=== PATIENT | male | born 1980 | race Caucasian/White ===

== ENCOUNTER 2019-07-29 15:38 | Observation (INO) ==
--- NOTE | 2019-07-29 18:00 | Event Note ---
Date of Encounter: 07/29/19 Time of Encounter: 17:30 Patient with history of nephrolithiasis was sent over from the [place] after he presented there yesterday with complaints of severe right-sided flank pain along with nausea and vomiting. Patient had similar symptoms in May when he was diagnosed with kidney stone. At that time he was referred to urologist for follow-up but he has not been able to make it to see one year. He denies any fevers or chills. No dysuria or hematuria. On exam, he has tenderness in his right CVA region. Heart sounds are normal. Breath sounds are normal. CT scan of the abdomen and pelvis shows a 8mm right ureteral stone with hydroureter. Treat symptomatically with IV fluids and IV hydration. Continue Rocephin. Check CBC and BMP in the morning. Urology consulted. Keep nothing by mouth after midnight.
[2019-07-29] MEDS ORDERED: Acetaminophen 325 MG TABLET PO PRN (18:13)
[2019-07-29] MEDS ORDERED: Naloxone 0.4 MG/ML INJ IVP PRN (18:13)
[2019-07-29] MEDS ORDERED: *HR* OxyCODONE Immed Rel 5 MG TABLET PO PRN (18:13)
--- NOTE | 2019-07-29 18:13 | Urology - Consult Note ---
Date of Encounter: 07/30/19 Time of Encounter: 18:10 - Assessment and Plan (1) Ureteral stone Current Visit: Yes Status: Acute Assessment and plan: 38-year-old man with concern for a right ureteral stone. We will check a KUB today. He will have clear liquids past midnight stopping at noon tomorrow. He would like to have his stone treated. Recommend proceeding with a right ureteroscopy, laser lithotripsy, and stent placement. He was informed of the risks of the procedure including but not limited to bleeding, infection, injury to other structures, need for further procedures, stent irritation, incomplete fragmentation, ureteral perforation, need for nephrostomy tube, need for open repair, risks unforeseen, and the risk of anesthesia. He is willing to proceed. He understands that he likely has large volume stone in both kidneys. We will not be able to treat all the stones tomorrow. We will essentially treat the obstructing stone at this point. We would have to stage the treatment of his other stones at a later date. Urology CN:HPI Consult date: 07/29/19 Reason for consult Urology: Other (Right flank pain) Requesting physician: Victorino Jane History of present illness: 38 year old man presents with a long standing history of right flank pain. His pain became more severe and he went to the [facility]. He had a CT scan which showed concern for multiple renal calculi with an obstructing right ureteral stone. He was transferred to [place] for further care. He reports that he is known these had kidney stones for about 2 months. He was scheduled to visit with an outside urologist, but was not able to make that appointment. The pain is in his right flank and radiates to the right groin. It is sharp. He has had nausea and has not tolerated food well. He denies any previous history of stone surgery. Past Med Surg Social Fam HX - Past Medical History Medical history: thyroid disease Additional medical history: As from internal medicine H&P. - Past Surgical History Surgical History: thyroidectomy - Social History Smoking Status: Never smoker Additional social history: Works as a mental health counselor. He is a . - Family History Mother Hx Family Cancer: Yes (breast) Medications and Allergies Allergy/AdvReac Type Severity Reaction Status Date / Time dexamethasone [From Decadron] Allergy Palpitation Verified 07/29/19 17:25 s Diclofenac Allergy Palpitation Verified 07/29/19 18:17 s Review of Systems - Constitutional no chills, no fever(s) - EENT Nose, mouth and throat: no dizziness - Cardiovascular no chest pain - Respiratory no dyspnea - Gastrointestinal nausea, no vomiting - Genitourinary flank pain, no hematuria - Musculoskeletal no back pain - Integumentary no erythema, no rash - Neurological no weakness - Psychiatric no suicidal ideation - Hematologic/Lymphatic no easy bleeding - Allergic/Immunologic no wheezing Exam - General physical appearance Present: well developed, well nourished, no distress - Eyes Absent: icteric - ENT Present: normal nares - Neck Present: trachea midline - Respiratory Present: normal respiratory effort - Cardiovascular Cardiovascular exam IM: RRR - Abdomen Abdomen: Present: soft - Integumentary Present: no rash - Neurologic Present: normal coordination - Musculoskeletal Present: other (grossly normal) Urology Results - Labs 07/29/19 18:50 All other labs normal. - Imaging CT scan - abdomen: report reviewed CT scan - pelvis: report reviewed Consult Discharge Plan - Plan Referrals: [facility] [Outside] Amarjit Mohr MD [Partnered Physician] -
--- NOTE | 2019-07-29 18:30 | Internal Med History&Physical ---
<Paty Cantrell I - Last Filed: 07/29/19 18:25> Date of Encounter: 07/29/19 Time of Encounter: 06:10 Internal Medicine - H&P: HPI History of present illness: Mr. Max is a 38 year old male obese with a long standing history of right flank pain. The pain is in his right flank and radiates to the right groin. It is sharp. He has had nausea and has not tolerated food well. patient denies vomiting He denies any fevers or chills. No dysuria or hematuria. . no change in bowel habit , NO chest pain or SOB His pain became more severe and he went to the [facility]. He had a CT scan which showed concern for multiple renal calculi with an obstructing right ureteral stone. He was transferred to [place] for further care.He reports that he is known these had kidney stones for about 2 months. He was scheduled to visit with an outside urologist, but was not able to make that appointment.He denies any previous history of stone surgery. Patient is stable now . Urology consulted plan for right ureteroscopy, laser lithotripsy, and stent placement. Past Med Surg Social Fam HX - Past Medical History Medical history: thyroid disease Additional medical history: vit. D def, adjustment disorder with mixed anxiety and depression Psychiatric history: anxiety, depression - Past Surgical History Surgical History: thyroidectomy Additional surgical history: knee scope - Social History Smoking Status: Never smoker Alcohol use: none Drug use: none - Family History Mother Hx Family Cancer: Yes (breast) Internal Medicine - H&P: Meds Allergy/AdvReac Type Severity Reaction Status Date / Time dexamethasone [From Decadron] Allergy Palpitation Verified 07/29/19 17:25 s Diclofenac Allergy Palpitation Verified 07/29/19 18:17 s All Systems PM: A 10-system review of systems was performed and is negative for pertinent findings except as documented above in the HPI. - Constitutional Exam: General: no acute distress , A&AX3 HEENT: Atraumatic, Normocephaly, sclera unicteric Neck: supple , Full ROM , trachea midline Cardiac: RRR , S1+. S2+ Lungs: Normal Breath Sounds Bilaterally, No Wheeze, Rales, Rhonchi Abdomen: Soft, , Right costovertebral angle tenderness, righ flank tenderness no organomegaly , +bowel sounds Extremities: No Clubbing, No Cyanosis,or edema , Normal Pulses Skin : intact , Normal color , bruises on his arms Psychiatric : normal affect, normal mood Nuero : alert, normal gait, oriented X3 - Assessment and Plan (1) Ureteral stone Current Visit: Yes Status: Acute Assessment and plan: -Patient presented right flank and radiates to the right groin - CT scan which showed concern for multiple renal calculi with an obstructing right ureteral stone - KUB today -IVF -antiemitic -pain control medication -clear liquids past midnight stopping at noon tomorrow -urology consulted Plan for right ureteroscopy, laser lithotripsy, and stent placement. - Time Spent With Patient Total time spent is greater than 50% in coordination of care (as documented) at patient's floor/unit and/or counseling patient: <Victorino Jane - Last Filed: 07/29/19 21:15> Date of Encounter: 07/29/19 Time of Encounter: 17:30 Internal Medicine - H&P: HPI History of present illness: Mr. Max is a 38 year old male All Systems PM: A 10-system review of systems was performed and is negative for pertinent findings except as documented above in the HPI. - Constitutional Vitals: Temp Pulse Resp BP Pulse Ox 98.5 F 69 16 145/80 95 07/29/19 20:32 07/29/19 20:32 07/29/19 20:32 07/29/19 20:32 07/29/19 20:32 Internal Med - H&P Results - Labs CBC & Chem 7: 07/29/19 18:50 Labs: Short CBC 07/29/19 Range/Units 18:50 WBC 12.0 H (4.3-11.1) K/mcL Hgb 12.8 L (12.9-16.9) g/dL Hct 37.2 L (37.5-50.1) % Plt Count 240 (140-400) K/mcL Neutrophils # 10.1 H (1.6-8.9) K/mcL - Time Spent With Patient Total time spent is greater than 50% in coordination of care (as documented) at patient's floor/unit and/or counseling patient: - Attending Attestation I saw evaluated and examined this patient and reviewed past medical, family, social histories and objective data including labs and my medical decision- making was reviewed with the Resident Physician, Paty Cantrell. I agree with the documented findings, disposition and treatment plan as described except to any changes set forth below. We independently had [id number] contact with the patient. Patient with history of nephrolithiasis was sent over from the [place] after he presented there yesterday with complaints of severe right-sided flank pain along with nausea and vomiting. Patient had similar symptoms in May when he was diagnosed with kidney stone. At that time he was referred to urologist for follow-up but he has not been able to make it to see one year. He denies any fevers or chills. No dysuria or hematuria. On exam, he has tenderness in his right CVA region. Heart sounds are normal. Breath sounds are normal. CT scan of the abdomen and pelvis shows a 8mm right ureteral stone with hydroureter. Treat symptomatically with IV fluids and IV hydration. Continue Rocephin. Check CBC and BMP in the morning. Urology consulted. Keep nothing by mouth after midnight.
[2019-07-29] MEDS: Ondansetron 4 MG/2 ML VIAL IVP PRN (18:42)
[2019-07-29] MEDS: *HR* OxyCODONE Immed Rel 5 MG TABLET PO PRN (18:42)
[2019-07-29] MEDS: 0.9 % Sodium Chloride 1,000 ML IVC SCH (18:42)
[2019-07-29] MEDS: cefTRIAXone 1,000 MG in Water for inj. (sterile) 10 ML IVP SCH (18:56)
[2019-07-29 19:05] LABS: Basophils % 0.2 %; Eosinophils % 0.1 %; Hematocrit 37.2 % (37.5-50.1); Hemoglobin 12.8 g/dL (12.9-16.9); Immature Granulocytes % 0.6 % (0-4); Lymphocytes # 1.1 K/mcL (0.6-4.6); Lymphocytes % 8.9 %; Mean Corpuscular HGB Conc 34.4 g/dL (31.6-35.5); Mean Corpuscular Hemoglobin 30.8 pg (28.0-33.3); Mean Corpuscular Volume 89.6 fL (83.0-100.0); Mean Platelet Volume 9.9 fL (9.4-12.4); Monocytes # 0.7 K/mcL (0.0-1.3); Monocytes % 5.8 %; Neutrophils # 10.1 K/mcL (1.6-8.9); Platelet Count 240 K/mcL (140-400); Red Blood Count 4.15 M/mcL (4.19-5.50); Red Cell Distribution Width 12.4 % (11.5-14.5); Segmented Neutrophils % 84.4 %
--- NOTE | 2019-07-29 19:13 | Anesthesia Evaluation PreOp ---
Date of Encounter: 07/29/19 Time of Encounter: 18:00 - Past History Planned Operation: Right USE/Stent Cardiac History: Denies any Significant Hx Pulmonary History: VINCENT Dx (not on CPAP) CIVIL ENGINEER History: Denies Any Significant HX Other Medical History: Thyroid, Other (Morbid Obesity Anxiety Depression) Alcohol Use: none Drug use: none Medications and Allergies Allergy/AdvReac Type Severity Reaction Status Date / Time dexamethasone [From Decadron] Allergy Palpitation Verified 07/29/19 17:25 s Diclofenac Allergy Palpitation Verified 07/29/19 18:17 s - Meds/Allergy Pre-op Review Medications Reviewed: Yes Allergies Reviewed: Yes Beta Blockers on Current Med List: No Anesthesia Results - Labs 07/29/19 18:50 Anesthesia Exam O2 Sat Height 1.83 m Weight 147.27 kg Height: 6'0 Weight: 324 lbs NPO (# of Hours): [place] Pain Scale: 0 - HEENT Pupil (Motor): Pupils equal, EOMI Mallampati: II Teeth: Normal Oral Opening: Greater than 3 - CIVIL ENGINEER LOC: Oriented CIVIL ENGINEER Motor: Normal RUE, Normal LUE, Normal RLE, Normal LLE, Normal Face CIVIL ENGINEER Sensory: Normal: RUE, LUE, RLE, LLE, Face - Cardiac Rhythm: Regular Murmur: None JVD: No Carotid Bruit: No - Pulmonary Breath Sounds: bilateral Clear Respiratory Effort: Symmetrical Anesthesia Assess/Plan ASA Score: 3 ([place] VINCENT Hypothyroid) Level of consciousness: Cooperative, Oriented Anesthetic Plan: General Autologous Blood: No Monitoring Plan: Standard Monitors Recovery Plan: PACU (Discussed [place], agrees to proceed)
[2019-07-29] MEDS: traMADol 50 MG TABLET PO PRN (21:07)
[2019-07-29 21:40] LABS: Bilirubin,Urine Negative (Negative); Blood,Urine Negative (Negative); Clarity,Urine Clear (Clear); Color,Urine Yellow (Yellow); Glucose,Urine (UA) Normal (Normal); Ketones,Urine Negative (Negative); Leukocyte Esterase,Urine Negative (Negative); Nitrite,Urine Negative (Negative); Protein,Urine Negative (Neg-Trace); Specific Gravity,Urine 1.027 (1.010-1.025); Urobilinogen,Urine Normal (Normal)
[2019-07-30] MEDS: *HR* OxyCODONE Immed Rel 5 MG TABLET PO PRN ×3 (00:27→15:23)
[2019-07-30] MEDS: 0.9 % Sodium Chloride 1,000 ML IVC SCH (03:25)
[2019-07-30] MEDS: Ondansetron 4 MG/2 ML VIAL IVP PRN (07:31)
--- NOTE | 2019-07-30 07:52 | Internal Med Progress Note ---
<Victorino Jane - Last Filed: 07/30/19 13:50> Hospitalist Progress Note - Encounter Date of Encounter: 07/30/19 Time of Encounter: 09:15 - Exam Vitals: Temp Pulse Resp BP Pulse Ox 98.2 F 65 16 145/87 93 07/30/19 11:46 07/30/19 11:46 07/30/19 11:46 07/30/19 11:46 07/30/19 11:46 - Time Spent with Patient Total time spent is greater than 50% in coordination of care (as documented) at patient's floor/unit and/or counseling patient: Internal Medicine: Result - Labs CBC & Chem 7: 07/30/19 07:05 07/30/19 07:05 Labs: Short CBC 07/29/19 07/30/19 Range/Units 18:50 07:05 WBC 12.0 H 8.5 (4.3-11.1) K/mcL Hgb 12.8 L 12.2 L (12.9-16.9) g/dL Hct 37.2 L 36.9 L (37.5-50.1) % Plt Count 240 225 (140-400) K/mcL Neutrophils # 10.1 H (1.6-8.9) K/mcL BMP 07/30/19 07:05 Sodium 140 Potassium 3.9 Chloride 105 Carbon Dioxide 28 BUN 18 Creatinine 2.10 H Glucose 112 H Calcium 8.5 L Urine 07/29/19 Range/Units 21:10 Urine Color Yellow (Yellow) Urine Clarity Clear (Clear) Urine pH 6.0 (5.0-8.0) pH Units Ur Specific Nucla 1.027 H (1.010-1.025) Urine Protein Negative (Neg-Trace) mg/dL Urine Glucose (UA) Normal (Normal) mg/dL - Impressions Impressions KUB X-Ray 07/30/19 08:29 IMPRESSION: 1. Left nephrolithiasis. No definite right renal or bilateral ureteral calculi. 2. Unremarkable bowel gas pattern. D/ / 07/30/2019 08:47:13 Tessa Rosales MD / [email or web address] Interpreting Provider: Tessa Rosales MD Consult Discharge Plan - Plan Referrals: [facility] [Outside] Amarjit Mohr MD [Partnered Physician] - - Attending Attestation I saw evaluated and examined this patient and reviewed objective data including labs and my medical decision-making was reviewed with the Resident Physician, Paty Cantrell. I agree with the documented findings, disposition and treatment plan as described except to any changes set forth below. We independently had f nikki-to-face contact with the patient. Patient continues to have right-sided flank pain. Controlled with current pain medication regimen. Scheduled to undergo right ureteroscopy with lithotripsy and stent placement later today. He does have acute kidney injury. Continue IV hydration. Also on ceftriaxone empirically due to leukocytosis. No fever reported overnight. <Paty Cantrell I - Last Filed: 07/30/19 17:53> Hospitalist Progress Note - Encounter Date of Encounter: 07/30/19 - Subjective Interval History: patient is seen and examined today doing much better , denies fever , no nausea or vomiting . plan for surgery today , keep npo after noon - Exam Vitals: Temp Pulse Resp BP Pulse Ox 98.7 F 63 16 157/87 94 07/30/19 07:04 07/30/19 07:04 07/30/19 07:04 07/30/19 07:04 07/30/19 07:04 Exam: General: no acute distress , A&AX3 HEENT: Atraumatic, Normocephaly, sclera unicteric Neck: supple , Full ROM , trachea midline Cardiac: RRR , S1+. S2+ Lungs: Normal Breath Sounds Bilaterally, No Wheeze, Rales, Rhonchi Abdomen: Soft, , Right costovertebral angle tenderness, righ flank tenderness no organomegaly , +bowel sounds Extremities: No Clubbing, No Cyanosis,or edema , Normal Pulses Skin : intact , Normal color , bruises on his arms Psychiatric : normal affect, normal mood Nuero : alert, normal gait, oriented X3 - Assessment and Plan (1) Ureteral stone Current Visit: Yes Status: Acute Assessment and Plan: -Patient presented right flank and radiates to the right groin - CT scan which showed concern for multiple renal calculi with an obstructing right ureteral stone - patient is clinically stable , vitals stable -IVF -antiemitic -pain control medication - continue IV antibiotics -urology consulted Plan for right ureteroscopy, laser lithotripsy, and stent placement. - Time Spent with Patient Total time spent is greater than 50% in coordination of care (as documented) at patient's floor/unit and/or counseling patient: Internal Medicine: Result - Labs CBC & Chem 7: 07/30/19 07:05 07/30/19 07:05 Labs: Short CBC 07/29/19 Range/Units 18:50 WBC 12.0 H (4.3-11.1) K/mcL Hgb 12.8 L (12.9-16.9) g/dL Hct 37.2 L (37.5-50.1) % Plt Count 240 (140-400) K/mcL Neutrophils # 10.1 H (1.6-8.9) K/mcL Urine 07/29/19 Range/Units 21:10 Urine Color Yellow (Yellow) Urine Clarity Clear (Clear) Urine pH 6.0 (5.0-8.0) pH Units Ur Specific Nucla 1.027 H (1.010-1.025) Urine Protein Negative (Neg-Trace) mg/dL Urine Glucose (UA) Normal (Normal) mg/dL
[2019-07-30 07:57] LABS: Hematocrit 36.9 % (37.5-50.1); Hemoglobin 12.2 g/dL (12.9-16.9); Mean Corpuscular HGB Conc 33.1 g/dL (31.6-35.5); Mean Corpuscular Hemoglobin 30.2 pg (28.0-33.3); Mean Corpuscular Volume 91.3 fL (83.0-100.0); Mean Platelet Volume 10.4 fL (9.4-12.4); Platelet Count 225 K/mcL (140-400); Red Blood Count 4.04 M/mcL (4.19-5.50); Red Cell Distribution Width 12.6 % (11.5-14.5); White Blood Count 8.5 K/mcL (4.3-11.1)
[2019-07-30 07:59] LABS: Calcium 8.5 mg/dL (8.6-10.3); Magnesium 2.2 mg/dL (1.6-2.6); Phosphorous 2.5 mg/dL (2.7-4.5); Potassium 3.9 mEq/L (3.5-5.1)
--- NOTE | 2019-07-30 09:54 | Urology Progress Note ---
Date of Encounter: 07/30/19 Time of Encounter: 08:50 - Assessment and Plan (1) Ureteral stone Current Visit: Yes Status: Acute Assessment and plan: Patient is a 38-year-old male who presents with an obstructing right ureteral stone and bilateral nephrolithiasis. No acute changes overnight. Vital signs are stable and afebrile. Serum creatinine is elevated at 2.10. Patient is anticipating stone extraction later this afternoon with Dr. Mohr. Patient will remain nothing by mouth after noon. Progress Note Subjective: no new complaints, still having pain Narrative: Patient seen and examined sitting upright in bed in no apparent distress. Patient reports continued right flank pain. He denies any fever, chills, dysuria or gross hematuria. Objective Initial Vital Signs Temp Pulse Resp BP Pulse Ox 98.5 F 69 16 145/80 95 07/29/19 20:32 07/29/19 20:32 07/29/19 20:32 07/29/19 20:32 07/29/19 20:32 - General physical appearance Present: well developed, no distress, no pain, obese - Respiratory Present: normal expansion, normal respiratory effort - Abdomen Present: soft, non tender. Absent: distended - Genitourinary Present: other (No CVAT) - Integumentary Present: no rash, no abnormal pigmentation - Musculoskeletal Present: normal posture - Psychiatric Present: oriented to time, oriented to person, oriented to place, speech is normal, memory intact - Labs 07/30/19 07:05 07/30/19 07:05 Diabetes panel 07/30/19 Range/Units 07:05 Sodium 140 (136-145) mEq/L Potassium 3.9 (3.5-5.1) mEq/L Chloride 105 (98-107) mEq/L Carbon Dioxide 28 (23-29) mEq/L BUN 18 (6-20) mg/dL Creatinine 2.10 H (0.70-1.30) mg/dL Glucose 112 H (70-105) mg/dL Calcium 8.5 L (8.6-10.3) mg/dL Calcium panel 07/30/19 Range/Units 07:05 Calcium 8.5 L (8.6-10.3) mg/dL Phosphorus 2.5 L (2.7-4.5) mg/dL Pituitary panel 07/30/19 Range/Units 07:05 Sodium 140 (136-145) mEq/L Potassium 3.9 (3.5-5.1) mEq/L Chloride 105 (98-107) mEq/L Carbon Dioxide 28 (23-29) mEq/L BUN 18 (6-20) mg/dL Creatinine 2.10 H (0.70-1.30) mg/dL Glucose 112 H (70-105) mg/dL Calcium 8.5 L (8.6-10.3) mg/dL Adrenal panel 07/30/19 Range/Units 07:05 Sodium 140 (136-145) mEq/L Potassium 3.9 (3.5-5.1) mEq/L Chloride 105 (98-107) mEq/L Carbon Dioxide 28 (23-29) mEq/L BUN 18 (6-20) mg/dL Creatinine 2.10 H (0.70-1.30) mg/dL Glucose 112 H (70-105) mg/dL Calcium 8.5 L (8.6-10.3) mg/dL Consult Discharge Plan - Plan Referrals: [facility] [Outside] Amarjit Mohr MD [Partnered Physician] -
[2019-07-30] MEDS: traMADol 50 MG TABLET PO PRN (11:40)
[2019-07-30] MEDS: cefTRIAXone 1,000 MG in Water for inj. (sterile) 10 ML IVP SCH (18:07)
[2019-07-30] MEDS ORDERED: *HR* FentaNYL (PF) 100 MCG/2 ML VIAL ONE ×2 (18:45→20:28)
[2019-07-30] MEDS ORDERED: Dexamethasone 4 MG/ML VIAL ONE (18:45)
[2019-07-30] MEDS ORDERED: Lidocaine -MPF 2% 2 ML VIAL ONE ×2 (18:45→20:34)
[2019-07-30] MEDS ORDERED: Ondansetron 4 MG/2 ML VIAL ONE (18:45)
[2019-07-30] MEDS ORDERED: *HR* Propofol 200 MG/20 ML VIAL IVP ONE (18:45)
[2019-07-30] MEDS ORDERED: Isovue-300 150 ML INFUS..BTL ONE (19:04)
[2019-07-30] MEDS ORDERED: *HR* OxyCODONE Immed Rel 5 MG TABLET PO PRN ×2 (21:01→22:29)
[2019-07-30] MEDS ORDERED: *HR* Promethazine 25 MG/ML VIAL IVP PRN (21:01)
[2019-07-30] MEDS ORDERED: Ondansetron 4 MG/2 ML VIAL IVP ONE (21:01)
--- NOTE | 2019-07-30 21:15 | Operative Note ---
Date of procedure: 07/30/19 Pre-op diagnosis: Right ureteral stone Post-op diagnosis: same Procedure: Right ureteroscopy, laser lithotripsy, and stent placement Implants: 6-Belgian by 28 cm double-J stent Complications: None Anesthesia: GETA Surgeon: Amarjit Mohr Was there an assistant signal maintainer present: No Estimated blood loss (cc): 1 Specimen: none Condition: stable Disposition: PACU Procedure in Detail: Indications: Mr. Max is a 38-year-old male who has a history of nephrolithiasis. A CT scan showed a stone within his right proximal ureter. He elected to undergo a right ureteroscopy, laser lithotripsy, and basket stone extraction with stent placement. He was aware of the risks of the procedure including but not limited to bleeding, infection, injury to other structures, need for further procedures, stent irritation, need for nephrostomy tube, need for open repair, risks otherwise unforeseen, and the risk of anesthesia. He is willing to proceed. Procedure in Detail: After informed consent was obtained the patient was brought back to the operating room and placed in supine position. A time out was performed. General anesthesia was administered and an bundle mask airway was placed. He was then placed in the lithotomy position. He was prepped and draped in the usual sterile fashion. Cystoscopy was performed. The anterior urethra was normal. There was no evidence of bladder tumors. The ureteral orifices were in the normal orthotopic position. There was no duplication of the ureteral orifices. The zip wire was placed in the right ureteral orifice. The wire was then brought up into the kidney under fluoroscopic guidance. The ureter was dilated with the 8/10-Belgian ureteral dilator. The sensor wire was then placed. The flexible ureteroscope was then advanced into the kidney. 2 stones were note d in the upper pole calyx. There was a Randy's plaque seen in the mid pole calyx. I then inserted a 200 micron laser fiber and fragmented the stones into small pieces. All the stone fragments appeared small enough to pass. The ureteroscope was then removed and the pullout ureteroscopy showed no injury to the ureter. No remaining stones were noted in the ureter. A 6 Belgian by 28cm JJ stent was then placed. The dangle strings were left intact and secured to the penis with a Tegaderm. The bladder was drained. The patient was then awakened from general anesthesia and brought to recovery room in good condition. All sponge, needle, and instrument counts were correct.
[2019-07-30] MEDS ORDERED: Naloxone 0.4 MG/ML INJ IVP PRN (22:29)
[2019-07-30] MEDS ORDERED: Acetaminophen 325 MG TABLET PO PRN (22:29)
[2019-07-30] MEDS ORDERED: Ondansetron 4 MG/2 ML VIAL IVP PRN (22:29)
[2019-07-30] MEDS ORDERED: traMADol 50 MG TABLET PO PRN (22:29)
--- NOTE | 2019-07-30 22:44 | Anesthesia Evaluation Post Op ---
Date of Encounter: 07/30/19 Time of Encounter: 22:10 - Vital Signs Vital Signs: Vital Signs/O2 Sat/Glucose, Most Current Temp Pulse Resp BP Pulse Ox 07/30/19 21:54 98.5 F 67 14 122/82 96 07/30/19 21:44 65 14 113/67 96 07/30/19 21:34 66 14 124/86 94 07/30/19 21:24 99.1 F 77 14 124/89 95 - Lungs Lungs: Clear Ascult./Percussion - Airway Airway: Non-obstructed - Cardiovascular Regular Rate - Mental Status Mental Status: Alert & Oriented, Answers Appropriately - Pain Pain Scale: 0 - Nausea Vomiting Nausea Vomiting: Not Present - Hydration Hydration: Ice chips - Discharge PostOp Status: Transfer Patient to floor
[2019-07-31 02:37] LABS: Basophils % 0.2 %; Eosinophils # 0.1 K/mcL (0.0-0.6); Eosinophils % 1.1 %; Hematocrit 37.8 % (37.5-50.1); Hemoglobin 12.7 g/dL (12.9-16.9); Immature Granulocytes % 0.3 % (0-4); Lymphocytes # 1.1 K/mcL (0.6-4.6); Lymphocytes % 12.1 %; Mean Corpuscular HGB Conc 33.6 g/dL (31.6-35.5); Mean Corpuscular Hemoglobin 30.5 pg (28.0-33.3); Mean Corpuscular Volume 90.6 fL (83.0-100.0); Mean Platelet Volume 10.2 fL (9.4-12.4); Monocytes # 0.7 K/mcL (0.0-1.3); Monocytes % 8.1 %; Neutrophils # 7.1 K/mcL (1.6-8.9); Platelet Count 223 K/mcL (140-400); Red Blood Count 4.17 M/mcL (4.19-5.50); Red Cell Distribution Width 12.2 % (11.5-14.5); Segmented Neutrophils % 78.2 %; White Blood Count 9.1 K/mcL (4.3-11.1)
[2019-07-31 02:58] LABS: BUN/Creatinine Ratio 10 (6-26); Blood Urea Nitrogen 15 mg/dL (6-20); Calcium 8.4 mg/dL (8.6-10.3); Carbon Dioxide 27 mEq/L (23-29); Chloride 104 mEq/L (98-107); Glucose 103 mg/dL (70-105); Osmolality,Calculated 289 (280-300); Potassium 3.9 mEq/L (3.5-5.1); Sodium 139 mEq/L (136-145); eGFR For African Americans > 60 (> 60); eGFR For Non-African Americans 54 (> 60)
--- NOTE | 2019-07-31 08:37 | Discharge Summary ---
<Victorino Jane - Last Filed: 07/31/19 12:18> Date of Encounter: 07/31/19 Time of Encounter: 09:20 Hospital course: Mr. Max is a 38 year old male - Time Spent with Patient Total time spent providing and/or coordinating discharge services: - Discharge Medications Prescriptions: New Cephalexin [Keflex] 500 mg PO BID 5 Days #10 capsule Tramadol HCl [Ultram] 50 mg PO QID PRN 4 Days #16 tab PRN Reason: Pain Continued Amlodipine Besylate 5 mg PO DAILY Tamsulosin HCl 0.4 mg PO DAILY Levothyroxine Sodium [Levoxyl] 125 mcg PO QAM FLUoxetine HCl [Prozac] 20 mg PO DAILY Home Medications: Amlodipine Besylate 5 mg PO DAILY 07/30/19 [History] FLUoxetine HCl [Prozac] 20 mg PO DAILY 07/30/19 [History] Levothyroxine Sodium [Levoxyl] 125 mcg PO QAM 07/30/19 [History] Tamsulosin HCl 0.4 mg PO DAILY 07/30/19 [History] Cephalexin [Keflex] 500 mg PO BID 5 Days #10 capsule 07/31/19 [Rx] Tramadol HCl [Ultram] 50 mg PO QID PRN 4 Days #16 tab 07/31/19 [Rx] Allergies/Adverse Reactions: Allergy/AdvReac Type Severity Reaction Status Date / Time dexamethasone [From Decadron] Allergy Palpitation Verified 07/29/19 17:25 s Diclofenac Allergy Palpitation Verified 07/29/19 18:17 s Date of admission: 07/29/19 16:55 Primary care physician: PCP NONE Consults: 07/29/19 18:20 Consult to Urology [CONS] Routine Consulting Provider: Urology Carmen Reason for Consult: flank pain Call Completed: No - Constitutional Vitals: Temp Pulse Resp BP Pulse Ox 98.1 F 66 15 125/79 96 07/31/19 11:11 07/31/19 11:11 07/31/19 11:11 07/31/19 11:11 07/31/19 11:11 - Patient Status Disposition: Home, Self-Care Condition: Good - Discharge Instructions Follow Up With: [facility] [Outside] Amarjit Mohr MD [Partnered Physician] - 08/20/19 9:30 am - Attending Attestation I saw evaluated and examined this patient and reviewed objective data including labs and my medical decision-making was reviewed with the Resident Physician. I agree with the documented findings, disposition and discharge plan as described except to any changes set forth below. We independently had [id number] contact with the patient. Patient was hospitalized here after he was sent [place] due to right sided flank pain and was diagnosed with ureteral colic and right-sided hydronephrosis. He was treated with IV fluids and then underwent ureteroscopy with lithotripsy and stent placement yesterday. He is now doing much better and is clinically stable to be discharged home from a urologic standpoint. He will follow up with urology as outpatient and can remove his ureteral stent in 7 days. He did have acute kidney injury related to his hydronephrosis but this is now resolving. Time spent on discharge: 5 min <Paty Cantrell I - Last Filed: 07/31/19 14:31> - NOTES TO OUTPATIENT PROVIDER Notes to Outpatient Provider: Patient is a 38-year-old male who presents one day of right flanl pain . Underwent right ureteroscopy, laser lithotripsy, and stent placement. Date of Encounter: 07/31/19 - Discharge Diagnosis (1) Ureteral stone Priority: Primary Status: Acute Hospital course: Mr. Max is a 38 year old male presents with a long standing history of right flank pain.The pain is in his right flank and radiates to the right groin. It is sharp. His pain became more severe and he went to the [facility]. He had a CT scan which showed concern for multiple renal calculi with an obstructing right ureteral stone. He was transferred to [place] for further care. He has had nausea and has not tolerated food well. He denies any previous history of stone . urology consulted and they recommend proceeding with a right ureteroscopy, laser lithotripsy, and stent placement.Patient is recovering very well postoperatively. Vital signs have remained stable and afebrile. Renal function is much improved with a serum creatinine of 1.46 from 2.10. We discussed postoperative expectations with indwelling ureteral stent. Patient is aware he will need to remove his stent postoperative day #7. Urology will arrange for an outpatient follow-up. Patient is discharged on 5 days of keflex and instructed to follow up with urologist . - Time Spent with Patient Total time spent providing and/or coordinating discharge services: Date of admission: 07/29/19 16:55 Primary care physician: PCP NONE Consults: 07/29/19 18:20 Consult to Urology [CONS] Routine Consulting Provider: Urology Carmen Reason for Consult: flank pain Call Completed: No - Constitutional Vitals: Temp Pulse Resp BP Pulse Ox 97.7 F 57 15 111/75 93 07/31/19 07:43 07/31/19 07:43 07/31/19 07:43 07/31/19 07:43 07/31/19 07:43 Exam: General: no acute distress , A&AX3 HEENT: Atraumatic, Normocephaly, sclera unicteric Neck: supple , Full ROM , trachea midline Cardiac: RRR , S1+. S2+ Lungs: Normal Breath Sounds Bilaterally, No Wheeze, Rales, Rhonchi Abdomen: Soft, no tenderness no organomegaly , +bowel sounds Extremities: No Clubbing, No Cyanosis,or edema , Normal Pulses Skin : intact , Normal color , bruises on his arms Psychiatric : normal affect, normal mood Nuero : alert, normal gait, oriented X3 - Patient Status Functional capacity at discharge: independent ambulation Overall status at discharge: patient is back to baseline
--- NOTE | 2019-07-31 08:44 | Urology Progress Note ---
Date of Encounter: 07/31/19 Time of Encounter: 07:50 - Assessment and Plan (1) Ureteral stone Current Visit: Yes Status: Acute Assessment and plan: Patient is a 38-year-old male who presents one day status post right ureteroscopy, laser lithotripsy, and stent placement. Patient is recovering very well postoperatively. Vital signs have remained stable and afebrile. Renal function is much improved with a serum creatinine of 1.46 from 2.10. We discussed postoperative expectations with indwelling ureteral stent. Patient is aware he will need to remove his stent postoperative day #7. Urology will arrange for an outpatient follow-up. Patient is eligible for discharge from urologic standpoint. Progress Note Narrative: POD #1. Patient seen and examined sitting upright in bed in no distress. Patient is tolerating normal diet without nausea or vomiting. Patient is voiding well without difficulty. He denies any fever, chills or flank pain. Objective Initial Vital Signs Temp Pulse Resp BP Pulse Ox 98.5 F 69 16 145/80 95 07/29/19 20:32 07/29/19 20:32 07/29/19 20:32 07/29/19 20:32 07/29/19 20:32 - General physical appearance Present: no distress, no pain - Respiratory Present: normal expansion, normal respiratory effort - Abdomen Present: soft, non tender. Absent: distended - Integumentary Present: no rash, no abnormal pigmentation - Musculoskeletal Present: normal posture - Psychiatric Present: oriented to time, oriented to person, oriented to place, speech is normal, memory intact - Labs 07/31/19 02:16 07/31/19 02:16 Diabetes panel 07/31/19 Range/Units 02:16 Sodium 139 (136-145) mEq/L Potassium 3.9 (3.5-5.1) mEq/L Chloride 104 (98-107) mEq/L Carbon Dioxide 27 (23-29) mEq/L BUN 15 (6-20) mg/dL Creatinine 1.46 H (0.70-1.30) mg/dL Glucose 103 (70-105) mg/dL Calcium 8.4 L (8.6-10.3) mg/dL Calcium panel 07/31/19 Range/Units 02:16 Calcium 8.4 L (8.6-10.3) mg/dL Pituitary panel 07/31/19 Range/Units 02:16 Sodium 139 (136-145) mEq/L Potassium 3.9 (3.5-5.1) mEq/L Chloride 104 (98-107) mEq/L Carbon Dioxide 27 (23-29) mEq/L BUN 15 (6-20) mg/dL Creatinine 1.46 H (0.70-1.30) mg/dL Glucose 103 (70-105) mg/dL Calcium 8.4 L (8.6-10.3) mg/dL Adrenal panel 07/31/19 Range/Units 02:16 Sodium 139 (136-145) mEq/L Potassium 3.9 (3.5-5.1) mEq/L Chloride 104 (98-107) mEq/L Carbon Dioxide 27 (23-29) mEq/L BUN 15 (6-20) mg/dL Creatinine 1.46 H (0.70-1.30) mg/dL Glucose 103 (70-105) mg/dL Calcium 8.4 L (8.6-10.3) mg/dL Consult Discharge Plan - Plan Referrals: [facility] [Outside] Amarjit Mohr MD [Partnered Physician] -
[2019-07-31] MEDS ORDERED: FLUoxetine 20 MG CAPSULE PO SCH ×2 (09:00)
[2019-07-31] MEDS ORDERED: amLODIPine 5 MG TABLET PO SCH ×2 (09:00)
[2019-07-31 11:13] VITALS: BP 125/79
[2019-07-31] MEDS ORDERED: cefTRIAXone 1,000 MG in Water for inj. (sterile) 10 ML IVP SCH (18:00)
== END 2019-07-31 12:35 | disposition home or self-care (01) ==
LOC: 3ANU → SUATTDRO 16:55
PROVIDERS: ADMIT Internal Medicine; ATTEND Internal Medicine